=== PATIENT | female | born 1935 | race African-American/Black ===

== ENCOUNTER 2017-03-29 13:37 | Emergency (ER) | payer MEDICARE ==
[~2017-03-29] VITALS: Ht 162.6 cm; Wt 70.8 kg
[2017-03-29] MEDS ORDERED: NKM (13:53)
[2017-03-29 13:58] VITALS: BP 150/78
[2017-03-29] MEDS ORDERED: SUDAFED 12-HOU120 MG PO (15:08)
[2017-03-29] MEDS ORDERED: FLONASE ALLERG9.9 ML NS (15:08)
[2017-03-29 15:10] VITALS: BP 150/78
--- NOTE | 2017-03-29 15:12 | Diagnostic Imaging Report ---
Indication: COUGH Technique: One view of the chest Comparison: none Findings: Patient is rotated to the right. The lungs and pleural spaces are clear. There is prominence of the upper mediastinum, particularly the right paratracheal region. The heart size is normal Impression: Upper mediastinal prominence. Likely physiologic, due to ectatic vasculature and exaggerated by rightward rotation. However, possibility of thyroid mass/goiter or other upper mediastinal mass cannot excluded. Consideration should be given to thyroid ultrasound or chest CT No acute process otherwise Findings previously discussed by phone with nurse indiana Allred in the emergency room
--- NOTE | 2017-03-29 21:00 | Emergency Room Report ---
History of Present Illness General Chief Complaint: General Complaint Source: Patient (CHALINO RAINEY) Present Illness HPI The patient is an 82-year-old female presenting for productive cough for the past month. She states that she went to see her primary doctor for the same complaints recently and he did not do anything for her. She also is complaining of nasal congestion and sore throat. Pain is a 7/10 dull ache to the back of the throat and does not radiate. Worse with swallowing and cough. She denies any other symptoms including N, V, F, chills, hemoptysis, SOB, CP (CHALINO RAINEY.Prasanth) Allergies: Coded Allergies: No Known Allergies (Unverified , 03/29/17) Patient History Past Medical History: see triage record Pertinent Family History: none Reviewed Nursing Documentation: PMH: Agreed, PSxH: Agreed (CHALINO RAINEY) Nursing Documentation-PMH Past Medical History: No Stated History (CHALINO RAINEY) Review of Systems All Other Systems: negative except mentioned in HPI (CHALINO RAINEY.Prasanth) Physical Exam Vital Signs Date Time Temp Pulse Resp B/P (MAP) Pulse Ox O2 Delivery O2 Flow Rate FiO2 03/29/17 13:49 97.3 62 16 150/78 100 Room Air Sp02 EP Interpretation: reviewed, normal General Appearance: no apparent distress, alert, GCS 15, non-toxic Head: normocephalic, atraumatic Eyes: bilateral eye normal inspection, bilateral eye PERRL ENT: hearing grossly normal, normal pharynx, no angioedema, normal voice, nasal congestion Neck: full range of motion, supple/symm/no masses Respiratory: chest non-tender, lungs clear, normal breath sounds, no wheezing, speaking full sentences Cardiovascular #1: regular rate, rhythm, no edema Gastrointestinal: normal bowel sounds, non tender, soft, non-distended, no guarding, no rebound Musculoskeletal: back normal, gait/station normal, normal range of motion, non- tender Neurologic: alert, oriented x3, responsive, motor strength/tone normal, sensory intact, speech normal Psychiatric: judgement/insight normal, memory normal, mood/affect normal, no suicidal/homicidal ideation Skin: normal color, no rash, warm/dry, well hydrated (CHALINO RAINEY) Medical Decision Making PA Attestation Dr. Griffin is my supervising physician. Patient management was discussed with my supervising physician (CHALINO RAINEY) Medicare Attestation Wilton Bartlett MD hereby attest that the medical recordaccurately reflects signatures/notations that I made in my capacity as MD when I treated/diagnosed the above listed Medicare beneficiary. I attest that this information is true, accurate and complete to the best of my knowledge. I understand that any falsification, omission, or concealment of material fact may subject me to administrative, civil, or criminal liability. This patient warrants hospital admission for extreme of age and has a condition that cannot be treated as outpatient. (Wilton Griffin M.D.) Diagnostic Impression: Primary Impression: Abnormality of lung on chest x-ray Additional Impression: Sinusitis Qualified Codes: J01.90 - Acute sinusitis, unspecified ER Course The patient is an 82-year-old female presenting for productive cough for the past month. Differential diagnosis include but not limited to pharyngitis, sinusitis, AOM, bronchitis, PNA, among others PE: Afebrile. NAD HEENT unremarkable. No Tonsillar edema or erythema. No lymphad. There is bilat nasal congestion Lungs CTA bilat. RRR CXR: Upper mediastinal prominence. Likely physiologic, due to ectatic vasculature and exaggerated by rightward rotation. However, possibility of thyroid mass/goiter or other upper mediastinal mass cannot excluded. No acute process otherwise The patient and her daughter were informed of this result. She is given her chest x-ray on a CD and will followup with her primary doctor as soon as possible. She was told that this is an urgent matter. The patient is discharged home prescription for Flonase and Sudafed ER precautions given (CHALINO RAINEY.Prasanth) ER Course I have reviewed the PA's interpretation of Xray results and agree with findings. (Wilton Griffin M.D.) Chest X-Ray Diagnostic Results Chest X-Ray Diagnostic Results : Chest X-Ray Ordered: Yes # of Views/Limited/Complete: 1 View Indication: Other - cough PA Xray: Interpretation reviewed, by supervising MD, and agrees with findings. Interpretation: no consolidation, no effusion, no pneumothorax, no acute cardiopulmonary disease Impression: No acute disease Electronically Signed by: Chalino Rainey PA-C (CHALINO RAINEY) Last Vital Signs Date Time Temp Pulse Resp B/P (MAP) Pulse Ox O2 Delivery O2 Flow Rate FiO2 03/29/17 15:10 97.3 16 150/78 100 Room Air 03/29/17 13:49 62 Status: improved (CHALINO RAINEY) Disposition: HOME, SELF-CARE Condition: Improved Scripts Fluticasone Propionate (Flonase Allergy Relief) 9.9 Ml [place].susp 1 SPRAYS NS DAILY, #10 ML Prov: CHALINO RAINEY 03/29/17 Pseudoephedrine Hcl (SUDAFED 12-HOUR) 120 Mg Tablet.er 120 MG PO Q12HR, #30 TAB Prov: CHALINO RAINEY. 03/29/17 Patient Instructions: Sinusitis, Adult Additional Instructions: I have provided a CD with x-ray for the patient to take to her primary doctor. I have informed her of the abnormal results in the lung. She needs to followup with her primary doctor as soon as possible for further evaluation. CHALINO RAINEY Mar 29, 2017 21:00 Wilton Griffin M.D. Apr 05, 2017 06:41
== END 2017-03-29 15:10 | disposition home or self-care (01) ==
LOC: EMR 14:11
DX: R91.8 Other nonspecific abnormal finding of lung field (principal); J32.9 Chronic sinusitis, unspecified; R05 Cough
CPT/HCPCS: 71010; 99284

== ENCOUNTER 2018-12-05 15:27 | Emergency (ER) | payer MEDICARE ==
[~2018-12-05] VITALS: Ht 162.6 cm; Wt 65.8 kg
[~2018-12-05 15:27] MED LIST: FLONASE ALLERG9.9 ML NS; NKM; SUDAFED 12-HOU120 MG PO
--- NOTE | 2018-12-05 16:05 | NUR ---
ED Nurse Note: pt walked in with daughter c/o pain on the left big toes, pt unsure if she hit something or if she fell, pt she has that lesion for 2 weeks now as verbalized, denies pain at the moment. pt able to ambulate. pt is seen by brielle rojas. will continue to monitor.
--- NOTE | 2018-12-05 16:25 | NUR ---
ED Nurse Note: xray on bedside
--- NOTE | 2018-12-05 17:11 | Emergency Room Report ---
History of Present Illness General Chief Complaint: Lower Extremity Injury Source: Patient Present Illness HPI 83 YO Female presents to the ED c/o 10/17 in severity localized pain, swelling, and erythema with bruising of the left great toe x 2 weeks. Pt. unsure if she had trauma. Pt. with hx of dementia. Pt. reports bruising at the cuticle line of the left great toenail. Pain is exacerbated with palpation and walking. pt. reports throbbing pain. Pt. also reports new onset of D/c since this am. Denies fevers or chills. Denies rashes, open wounds or bleeding. Denies hx of gout or pseudogout. Allergies: Coded Allergies: No Known Allergies (Unverified , 03/29/17) Patient History Past Medical History: see triage record, dementia Past Surgical History: none Pertinent Family History: none Now: No Reviewed Nursing Documentation: PMH: Agreed; PSxH: Agreed Nursing Documentation-PMH Past Medical History: No Stated History Review of Systems All Other Systems: negative except mentioned in HPI Physical Exam Vital Signs Date Time Temp Pulse Resp B/P (MAP) Pulse Ox O2 Delivery O2 Flow Rate FiO2 12/05/18 15:32 98.1 65 18 135/65 (88) 97 Room Air Sp02 EP Interpretation: reviewed, normal General Appearance: no apparent distress, alert, GCS 15, non-toxic Head: normocephalic, atraumatic Eyes: bilateral eye normal inspection, bilateral eye PERRL ENT: hearing grossly normal, normal voice Neck: full range of motion Respiratory: lungs clear, normal breath sounds, speaking full sentences Cardiovascular #1: regular rate, rhythm, normal capillary refill Musculoskeletal: back normal, gait/station normal, normal range of motion, swelling - left great toe cuticle line and lateral nail fold. , tender - left great toe, distally and about the cuticle line and latera nail fold. erythema with swelling noted. Neurologic: alert, oriented x3, responsive, motor strength/tone normal, sensory intact, speech normal, grossly normal Psychiatric: judgement/insight normal Skin: other - left great toe paronychia- erythema, swelling, ttp to the cuticle line of the left great toe and the lateral nail fold as well. Lymphatic: no adenopathy Procedures Incision and Drainage Incision and Drainage : Consent: Verbal Site: Left great toe Blade Size: 11 I & D Procedure: betadine prep, sterile drapes applied, sterile dressing applied Wound Location: lower extremity - left great toe Wound's Depth, Shape: superficial Wound Length (cm): 1 Wound Explored: contaminated - purulent d/c expressed. Splint Applied?: No Sling Applied?: No Patient Tolerated: Well Complications: None Progress - lesion was cleaned with Betadine prep. - no. 11 blade scalpel used to lift the cuticle off of the nail at the cuticle line and lateral edge of the nail- to drain the paronychia. purulent d/c was expressed. pt. tolerated well without complication. - sterile band-aid was then applied afterward. Medical Decision Making PA Attestation Dr. Osorio Is my supervising Physician whom patient management has been discussed with. Diagnostic Impression: Primary Impression: Paronychia due to ingrown nail Additional Impression: Toe pain, left ER Course 89 YO Female presents to the ED c/o 10/17 in severity localized pain, swelling, and erythema with bruising of the left great toe x 2 weeks. Pt. unsure if she had trauma. Pt. with hx of dementia. Pt. reports bruising at the cuticle line of the left great toenail. Pain is exacerbated with palpation and walking. pt. reports throbbing pain. Pt. also reports new onset of D/c since this am. Denies fevers or chills. Denies rashes, open wounds or bleeding. Denies hx of gout or pseudogout. Ddx considered but are not limited to cellulitis, paronychia, eponychia, ingrown toe nail, fracture, d/L, gout Vital signs: are WNL, pt. is afebrile H&PE are most consistent with left great toe paronychia ORDERS: none required at this time, the diagnosis is clinical ED INTERVENTIONS: - verbal consent was received . - lesion was cleaned with betadine prep. - no. 11 blade scalpel used to lift the cuticle off of the nail at the cuticle line and lateral edge of the nail- to drain the paronychia. purulent d/c was expressed. pt. tolerated well without complication. - sterile band-aid was then applied afterward. - will d/c pt. with PO abx. DISCHARGE: At this time pt. is stable for d/c to home. Will provide printed patient care instructions, and any necessary prescriptions. Care plan and follow up instructions have been discussed with the patient prior to discharge. Other X-Ray Diagnostic Results Other X-Ray Diagnostic Results : X-Ray ordered: Left Foot # of Views/Limited Vs Complete: 3 View Indication: Swelling EP Interpretation: Yes ROSA Xray: Interpretation reviewed, by supervising MD, and agrees with findings. Interpretation: no dislocation, no soft tissue swelling, no fractures Impression: No acute disease Electronically Signed by: Rosana Ruffin PA-C Last Vital Signs Date Time Temp Pulse Resp B/P (MAP) Pulse Ox O2 Delivery O2 Flow Rate FiO2 12/05/18 15:32 98.1 65 18 135/65 (88) 97 Room Air Disposition: HOME, SELF-CARE Condition: Stable Scripts Mupirocin* (MUPIROCIN*) 22 Gm Oint...g. 1 APPLIC TOPIC THREE TIMES A DAY, #22 GM Prov: Rosana Ruffin 12/05/18 Amoxicillin/Potassium Clav 875-125* (AUGMENTIN 875-125 TABLET*) 1 Each Tablet 1 TAB ORAL TWICE A DAY for 7 Days, #14 TAB Prov: Rosana Ruffin 12/05/18 Referrals: [facility] (PCP) Patient Instructions: Ingrown Toenail, Paronychia, [id number] Additional Instructions: Take medications as directed. Follow up with a Primary Care Provider in 3-5 days for [employer] WORK[employer] REFERRAL for INGROWN TOENAIL --Please review list of primary care clinics, if you do not already have a primary care provider Return sooner to ED if new symptoms occur, or current symptoms become worse. - Please note that this Emergency Department Report was dictated using [employer] tender chief operator technology software, occasionally this can lead to erroneous entry secondary to interpretation by the dictation equipment. Rosana Ruffin Dec 05, 2018 17:11
[2018-12-05] MEDS ORDERED: AUGMENTIN 875-1 EAC1 ORAL (17:12)
[2018-12-05] MEDS ORDERED: MUPIROCIN22 GM TOPIC (17:12)
[2018-12-05 17:20] VITALS: BP 135/65
--- NOTE | 2018-12-05 17:20 | NUR ---
ER DISCHARGE NOTE: Patient is cleared to be discharged per ERMD, pt is aox4, on room air, with stable vital signs. pt was given dc and prescription instructions, pt was able to verbalize understanding, pt id band removed without complications. pt is able to ambulate with steady gait. pt took all belongings.
--- NOTE | 2018-12-05 17:33 | Diagnostic Imaging Report ---
Indication: Right foot pain, status post first digit dislocation Technique: 3 views left foot Comparison: none Findings: There is hammertoe deformity of the second third and fourth digits. No acute fractures. No dislocations. The joint spaces are preserved. Impression: No acute process
== END 2018-12-05 17:20 | disposition home or self-care (01) ==
LOC: EMR 16:25
DX: L03.032 Cellulitis of left toe (principal); F03.90 Unspecified dementia, unspecified severity, without behavioral disturbance, psychotic disturbance, mood disturbance, and anxiety
CPT/HCPCS: 10060; 99283